=== PATIENT | male | born 1980 | race Hispanic/Latino ===

== ENCOUNTER 2022-07-27 01:01 | Emergency (ER) | payer OTHER ==
[~2022-07-27] VITALS: Ht 180.3 cm; Wt 98.0 kg
[2022-07-27] MEDS ORDERED: DICYCLOMINE HCL 10 MG/5 ML ML PO ONE (01:30)
[2022-07-27] MEDS ORDERED: LIDOCAINE HCL 2% VISCOUS 15 ML UDCUP PO ONE (01:30)
[2022-07-27] MEDS ORDERED: MAG/ALUM/SIMETH 30 ML UDCUP PO ONE (01:30)
[2022-07-27 01:31] LABS: BASOPHILS % (AUTO) 0.2 % (0.0-5.0); EOSINOPHILS % (AUTO) 3.3 % (0.0-8.0); HEMATOCRIT 46.8 % (42-54); LYMPHOCYTES % (AUTO) 11.5 % (21.0-51.0); MEAN CORPUSCULAR HEMOGLOBIN 30.4 pg (27.0-33.0); MEAN CORPUSCULAR HGB CONC 35.7 g/dL (32.0-36.0); MEAN CORPUSCULAR VOLUME 85.1 fL (79-99); MONOCYTES % (AUTO) 7.2 % (3.0-13.0); NEUTROPHILS % (AUTO) 77.3 % (40.0-77.0); PLATELET COUNT (AUTO) 321 K/uL (130-400); RED CELL DISTRIBUTION WIDTH 12.3 % (11.0-15.5); WHITE BLOOD COUNT (AUTO) 18.7 K/uL (4.8-10.8)
[2022-07-27 02:05] LABS: CREATININE 1.2 mg/dL (0.5-1.5); POTASSIUM 3.6 mmol/L (3.5-5.1)
[2022-07-27 02:09] LABS: ALBUMIN 3.8 g/dL (3.5-5.0); TOTAL PROTEIN, SERUM 7.6 g/dL (6.0-8.3)
[2022-07-27] MEDS ORDERED: ONDANSETRON 4MG INJ ONE (02:25)
[2022-07-27] MEDS ORDERED: ONDANSETRON 4MG INJ IVP ONE ×2 (02:30→05:00)
[2022-07-27] MEDS ORDERED: KETOROLAC 15MG/ML VIAL (15MG/ML) IV ONE (02:30)
[2022-07-27] MEDS ORDERED: 0.9%NACL 1000ML 1,000 ML IV ONE (02:30)
[2022-07-27] MEDS ORDERED: KETOROLAC 15MG/ML VIAL (15MG/ML) ONE (02:30)
[2022-07-27] MEDS ORDERED: IOHEXOL 350 MG/ML 100ML INFUS..BTL IV ONE (03:00)
[2022-07-27] MEDS ORDERED: MORPHINE 4 MG SYG IVP ONE ×2 (04:30→06:00)
[2022-07-27] MEDS ORDERED: ONDA4TAB10 PO (05:30)
[2022-07-27] MEDS ORDERED: LEVO-70 PO (05:30)
[2022-07-27] MEDS ORDERED: ACET-2079 PO (05:30)
[2022-07-27] MEDS ORDERED: LEVOFLOXACIN 500 MG TABLET ONE (05:35)
[2022-07-27] MEDS: LEVOFLOXACIN 500 MG TABLET PO SCH ×2 (05:40→05:41)
[2022-07-27 06:00] VITALS: BP 131/85
== END 2022-07-27 06:01 | disposition home or self-care (01) ==
LOC: EDH 01:01
DX: K52.9 Noninfective gastroenteritis and colitis, unspecified (principal); E86.0 Dehydration; R11.2 Nausea with vomiting, unspecified; E11.9 Type 2 diabetes mellitus without complications; E78.00 Pure hypercholesterolemia, unspecified; I10 Essential (primary) hypertension; Z79.1 Long term (current) use of non-steroidal anti-inflammatories (NSAID); F17.200 Nicotine dependence, unspecified, uncomplicated
CPT/HCPCS: 99285; 74177; 96374; 76705; 96375; 84484; 80053; 83690; 85025; 36415; 96376; 93005; J2405 ×2; J2270 ×2; J1885; Q9967